=== PATIENT | female | born 1955 | race Caucasian/White ===

== ENCOUNTER 2024-02-29 04:55 | Emergency (ER) | payer MEDICARE, SELFPAY ==
[2024-02-29] MEDS: NSS 1000 IV (05:22)
[2024-02-29] MEDS: ZOFRAN 4 MG IV (05:22)
--- NOTE | 2024-02-29 05:32 | ED.GENMED ---
History of Present Illness
<Tremayne Whitmore MD - Last Filed: 02/29/24 05:57>
General
Chief Complaint: Abdominal Symptoms
Source: patient and spouse
Exam Limitations: none
Time Seen by Provider: 02/29/24 05:01
Nursing documentation reviewed up to this point in time: agreed with
History of Present Illness
History of Present Illness:
68-year-old female with past medical history of hypertension, hyperlipidemia, GERD, UC who presents to the emergency room for evaluation of nausea/vomiting/diarrhea. Patient reports onset of symptoms early yesterday morning and they have been
constant for about 24 hours now. She reports multiple episodes of watery nonbloody diarrhea. She says she has had nausea and multiple episodes of vomiting. She reports some mild soreness in the epigastrium but no significant abdominal pain. She
says she feels very weak and fatigued. She denies any chest pain or shortness of breath. Denies any fever. She denies any other complaints. She says she had similar symptoms with flu in the past. She does have prior history of cholecystectomy.
Review of Systems
<Tremayne Whitmore MD - Last Filed: 02/29/24 05:57>
Review of Systems
All Other Systems: ROS reviewed and negative except as documented in HPI and ROS
Constitutional: Reports fatigue; Denies fever
Respiratory: Denies cough or trouble breathing
Cardiac: Denies chest pain or palpitations
ABD/GI: Reports abdominal pain, nausea, vomiting and diarrhea; Denies bloody stools
: Denies flank pain
Musculoskeletal: Denies neck pain or back pain
Neurological: Denies dizzy
Phy Exam
<Tremayne Whitmore MD - Last Filed: 02/29/24 05:57>
Physical Exam
Physical Exam:
General: Awake, alert, oriented x3; no acute distress
Head: Normocephalic, atraumatic
Eyes: Conjunctiva normal, sclera anicteric
Throat: Airway intact, dry mucous membranes
Neck: Trachea midline, supple without meningismus
Lungs: Clear to auscultation bilaterally, no wheezing, rales, rhonchi
Heart: Regular rate and rhythm, no murmurs, gallops, or rubs
Abd: Soft, non distended, nontender to deep palpation
Neuro: No gross deficits
Skin: No jaundice
Extremities: No edema in extremities, equal pulses in all extremities
Scores
<Tremayne Whitmore MD - Last Filed: 02/29/24 05:57>
Heart Failure Risk
Heart Failure Risk Score: Not Applicable
Heart Score for Chest Pain Patients
STEMI patient?: Not applicable
Withdrawal Assessment of Alcohol
Withdrawal Assessment Completed?: Not applicable
Course
<Tremayne Whitmore MD - Last Filed: 02/29/24 05:57>
Orders/Labs/Results
Orders:
Orders
02/29/24 05:16
IV Insert/Care/Rem.- Treatment PRN
Straight cath- Treatment ONCE
02/29/24 05:18
Complete Blood Count/With Diff Urgent
Comprehensive Metabolic Panel Urgent
Lipase Urgent
02/29/24 05:20
Ondansetron Injectable [Zofran] 4 mg IV NOW STA
02/29/24 05:21
0.9% Sodium Chloride 1000 ml [Nss] 1,000 ml IV BOLUS
Ondansetron Injectable [Zofran] 4 mg .ROUTE .STK-MED ONE
02/29/24 05:22
Urinalysis Reflex To Culture Urgent
02/29/24 05:35
Electrocardiogram (*1) Urgent
Reason for Study: Abdominal Pain
EKG- Treatment ONCE
02/29/24 06:43
COVID-19 Antigen Urgent
Source: Nasal Swab
Troponin I Urgent
Influenza A+B Rapid Molecular Urgent
GO Source: Nasal Swab
Specimen Description:
Abnormal Lab Results
02/29/24
05:18
MCH 31.7 H pg
(27.0-31.0)
MCHC 32.8 L g/dL
(33.0-37.0)
Absolute Lymphs (auto) 0.3 L 10^3/uL
(1.2-3.4)
Neutrophils % 87.8 H %
(42.2-75.2)
Lymphocytes % 3.7 L %
(20.5-51.1)
Carbon Dioxide 16 L mmol/L
(22-30)
BUN 23 H mg/dl
(7-17)
Glucose 158 H mg/dl
(70-99)
02/29/24 05:18
02/29/24 05:18
Vital Signs
Blood pressure: 170/61
Initial and Last Documented VS:
Initial Vital Signs
Temp Pulse Resp Pulse Ox
97.9 F 95 20 95
02/29/24 05:00 02/29/24 05:00 02/29/24 05:00 02/29/24 05:00
Last Documented Vital Signs
Temp Pulse Resp BP Pulse Ox
97.9 F 94 14 170/61 98
02/29/24 05:00 02/29/24 06:48 02/29/24 06:18 02/29/24 05:32 02/29/24 06:18
<Julio César Bhatt, DO - Last Filed: 02/29/24 07:30>
Orders/Labs/Results
Orders:
Orders
02/29/24 05:16
IV Insert/Care/Rem.- Treatment PRN
Straight cath- Treatment ONCE
02/29/24 05:18
Complete Blood Count/With Diff Urgent
Comprehensive Metabolic Panel Urgent
Lipase Urgent
02/29/24 05:20
Ondansetron Injectable [Zofran] 4 mg IV NOW STA
02/29/24 05:21
0.9% Sodium Chloride 1000 ml [Nss] 1,000 ml IV BOLUS
Ondansetron Injectable [Zofran] 4 mg .ROUTE .STK-MED ONE
02/29/24 05:22
Urinalysis Reflex To Culture Urgent
02/29/24 05:35
Electrocardiogram (*1) Urgent
Reason for Study: Abdominal Pain
EKG- Treatment ONCE
02/29/24 06:43
COVID-19 Antigen Urgent
Source: Nasal Swab
Troponin I Urgent
Influenza A+B Rapid Molecular Urgent
GO Source: Nasal Swab
Specimen Description:
Abnormal Lab Results
02/29/24
05:18
MCH 31.7 H pg
(27.0-31.0)
MCHC 32.8 L g/dL
(33.0-37.0)
Absolute Lymphs (auto) 0.3 L 10^3/uL
(1.2-3.4)
Neutrophils % 87.8 H %
(42.2-75.2)
Lymphocytes % 3.7 L %
(20.5-51.1)
Carbon Dioxide 16 L mmol/L
(22-30)
BUN 23 H mg/dl
(7-17)
Glucose 158 H mg/dl
(70-99)
02/29/24 05:18
02/29/24 05:18
Vital Signs
Initial and Last Documented VS:
Initial Vital Signs
Temp Pulse Resp Pulse Ox
97.9 F 95 20 95
02/29/24 05:00 02/29/24 05:00 02/29/24 05:00 02/29/24 05:00
Last Documented Vital Signs
Temp Pulse Resp BP Pulse Ox
97.9 F 94 14 170/61 98
02/29/24 05:00 02/29/24 06:48 02/29/24 06:18 02/29/24 05:32 02/29/24 06:18
<Tremayne Whitmore MD - Last Filed: 02/29/24 05:57>
MDM/Problems Addressed
Differential Diagnosis Includes:
Gastroenteritis, pancreatitis, food poisoning
MDM/Problems Addressed:
68-year-old female presents for evaluation of nausea/vomiting/diarrhea over the past 24 hours�mild epigastric soreness no significant pain. Vitals and exam as above. Plan Place an IV check labs including a CBC and a CMP, lipase. Will check an EKG
and a troponin and an abundance of caution with nausea and upper abdominal discomfort. Will provide IV Zofran and fluids. Monitor closely and reassess after the above. At this point with no abdominal tenderness, no fever in my judgment no
indication for emergent abdominal imaging�symptoms seem consistent with viral gastroenteritis.
Acute Exacerbation and/or Progression of Chronic Illness:
Acutely hypertensive
Acute Exacerbation and/or Progression of Chronic Illness: HTN
<Tremayne Whitmore MD - Last Filed: 02/29/24 05:57>
*Pulse Oximetry
Patient hypoxic: no
*EKG
Interpreted by ED Provider?: Yes
Heart Rate: 84
Rate: normal
Rhythm: sinus
[place]: normal axis
Interval: normal interval
QRS Pattern: right bundle branch block
Ischemia: no ischemia
*Critical Care Note
Total Time (30-74mins, 75-104mins- exclusive of procedures): Not Applicable
Data Reviewed
Source: patient and spouse
Further Testing Considered But Not Given:
Considered CT abdomen and pelvis as above
<Julio César Bhatt DO - Last Filed: 02/29/24 07:30>
Update Note
Update Note:
7:30 AM care of patient was transitioned pending reevaluation. No significant abnormality noted on blood work. On my exam, patient is well-appearing nontoxic and states she feels comfortable going home.
ED Attending Note
<Tremayne Whitmore MD - Last Filed: 02/29/24 05:57>
-
Portions of this chart may have been created with voice recognition software.� Occasional wrong word or��sound alike� substitutions may have occurred due to the inherent limitations of voice recognition software.
Discharge Plan
Departure
Patient Disposition: Home (Routine Discharge)
Date of Disposition: 02/29/24
Time of Disposition: 07:29
Patient with high blood pressure during this ER visit?: Yes
Discharge Problem:
Nausea, vomiting, and diarrhea
Instructions: Viral gastroenteritis in adults, [place] Diet
Prescriptions:
New
ondansetron 4 mg tablet,disintegrating
4 mg PO TIDPRN PRN (Reason: nausea/vomiting) Qty: 20 0RF
Activity Restrictions/Additional Instructions:
Thank you for visiting the Emergency Department at [facility].
1. Please schedule a follow up appointment as directed. Call first thing tomorrow morning to make an appointment.
2. If indicated, please take your medications as instructed and indicated on discharge paperwork.
3. If any of your symptoms do not improve, or persist, or become more severe within 6-12 hours, please return to the emergency department for further care.
4. Please return to the emergency department if you develop a headache, neck pain/stiffness, fever greater than 100.4F, chest pain, shortness of breath, persistent nausea, vomiting, slurred speech, difficulty walking, numbness/tingling, weakness,
signs of infection or any other symptoms that are worrisome to you.
Please call [phone] if you have any questions.
Interventions
Interventions:
*Risk Screen - Suicide Last Done: 02/29/24 05:00
*General Assessment Last Done: 02/29/24 05:00
*Neglect/Abuse Screening Last Done: 02/29/24 05:00
ED- Fall Risk Assessment Last Done: 02/29/24 05:00
*ED COVID-19 Vaccine History Last Done: 02/29/24 05:00
GQ-[place]-[id number] Assessment Last Done: 02/29/24 05:36
Discharge Date and Time
Print Language: LATVIAN
[2024-02-29 05:41] LABS: % Basophils 0.3 % (0-2); % Eosinophils 1.2 % (0-6); % Immature Granulocytes 0.4 % (0-0.5); % Lymphocytes 3.7 % (20.5-51.1); % Monocytes 6.6 % (1.7-9.3); % Neutrophils 87.8 % (42.2-75.2); Absolute Eosinophils 0.1 10^3/uL (0-0.7); Absolute Lymphocytes 0.3 10^3/uL (1.2-3.4); Absolute Monocytes 0.5 10^3/uL (0.1-0.6); Absolute Neutrophils 6.4 10^3/uL (1.4-6.5); Hematocrit 43.6 % (37.0-47.0); Hemoglobin 14.3 g/dL (12.0-16.0); Mean Corp Hgb Conc. 32.8 g/dL (33.0-37.0); Mean Corpuscular Hgb 31.7 pg (27.0-31.0); Mean Corpuscular Volume 96.7 fL (81.0-99.0); Mean Platelet Volume 9.4 fL (7.4-10.4); Nucleated Red Blood Cells % 0 %; Platelet Count 268 10^3/uL (130-400); Red Blood Cell Count 4.51 10^6/uL (4.20-5.40); Red Cell Dist. Width 13.6 % (11.5-14.5); White Blood Cell Count 7.2 10^3/uL (4.8-10.8)
[2024-02-29 06:05] LABS: ALT (SGPT) 26 U/L (0-35); AST (SGOT) 32 U/L (14-36); Albumin 4.2 g/dl (3.5-5.0); Alkaline Phosphatase 102 U/L (38-126); Blood Urea Nitrogen 23 mg/dl (7-17); Calcium 8.8 mg/dl (8.4-10.2); Carbon Dioxide 16 mmol/L (22-30); Chloride 105 mmol/L (98-107); Estimated Creatinine Clearance 115 ml/min; Glucose 158 mg/dl (70-99); Lipase 23 U/L (23-300); Potassium 3.6 mmol/L (3.5-5.1); Sodium 137 mmol/L (135-145); Total Bilirubin 0.6 mg/dl (0.2-1.3); Total Protein 6.9 g/dl (6.3-8.2); eGFR > 60.00
[2024-02-29 07:00] VITALS: BP 147/90
[2024-02-29 07:26] LABS: Troponin I < 0.012 ng/ml
[2024-02-29 07:35] LABS: COVID-19 Antigen Negative (Negative)
== END 2024-02-29 07:52 | disposition home or self-care (01) ==
LOC: EMR 04:55
PROVIDERS: EMERGENCY PHYSICIAN Emergency Medicine; FAMILY PHYSICIAN Internal Medicine
DX: R19.7 Diarrhea, unspecified (principal); R11.2 Nausea with vomiting, unspecified; R10.9 Unspecified abdominal pain; R53.83 Other fatigue; R53.1 Weakness; Z11.52 Encounter for screening for COVID-19; I45.10 Unspecified right bundle-branch block; I10 Essential (primary) hypertension; E78.5 Hyperlipidemia, unspecified; K21.9 Gastro-esophageal reflux disease without esophagitis; Z90.49 Acquired absence of other specified parts of digestive tract; Z88.8 Allergy status to other drugs, medicaments and biological substances; Z88.1 Allergy status to other antibiotic agents; Z91.013 Allergy to seafood
CPT/HCPCS: 99284; 96374; 96361; 80053; 83690; 84484; 85025; 87502; 87811; 93005